=== PATIENT | female | born 1970 | race Caucasian/White ===

== ENCOUNTER → 2018-03-26 | Outpatient (CLI) | payer OTHER ==
[~2018-03-26] MED LIST: ? ANTIDEPRESSANT; ACYC800 PO; Bactrim Ds Tab1 EACH PO; CEPH500 PO; CITA20 PO; CRUTCH2 USE; CYCL10 PO; DULO30 PO; DULO60 PO; FLUO20; HIBICLENS120 ML EXT; HYDACE5 PO; IBUP600 PO; INSLIS75I SC; Miralax17 GM PO; NAPR500 PO; NAPR550 PO; OXYACE5T PO; PENVK250 PO; PRED20 PO; PROM25 PO; Percocet 5-3251 EACH PO; RANI150 PO; RXHYDACE PO; RXOXYACE PO; SULTRIDS PO; TRAM50 PO; VALA500 PO; [UNRECOGNIZED DRUG - REMARK]
[2018-03-26 18:00] LABS: BASOPHILS ABSOLUTE AUTO 0.02 K/mm3 (0.00-0.23); BASOPHILS PERCENT AUTO 0 % (0-2); EOSINOPHILS ABSOLUTE AUTO 0.04 K/mm3 (0.00-0.68); EOSINOPHILS PERCENT AUTO 1 % (0-6); Hematocrit 36.1 % (33.0-51.0); Hemoglobin 12.2 g/dL (11.5-16.0); IMMATURE GRAN ABSOLUTE AUTO 0.01 K/mm3 (0.00-0.10); IMMATURE GRAN PERCENT AUTO 0 % (0-1); LYMPHOCYTES ABSOLUTE AUTO 2.01 K/mm3 (0.84-5.20); LYMPHOCYTES PERCENT AUTO 32 % (21-46); MONOCYTES ABSOLUTE AUTO 0.68 K/mm3 (0.16-1.47); MONOCYTES PERCENT AUTO 11 % (4-13); Mean Corpuscular HGB 30.8 pg (26.0-34.0); Mean Corpuscular HGB Conc 33.8 g/dL (31.5-36.5); Mean Corpuscular Volume 91 fL (80-100); Mean Platelet Volume 9.5 fL (9.1-12.4); NEUTROPHILS ABSOLUTE AUTO 3.56 K/mm3 (1.96-9.15); NEUTROPHILS PERCENT AUTO 56 % (41-73); Platelet Count 239 K/mm3 (150-400); RDW Coefficient Variation 13.2 % (11.7-14.2); RDW Standard Deviation 44.1 fL (35.1-46.3); Red Blood Cell Count 3.96 M/mm3 (3.80-5.20); White Blood Cell Count 6.32 K/mm3 (4.00-11.30)
[2018-03-26 18:13] LABS: Alanine Aminotransfer (ALT/SGP 15 U/L (12-78); Albumin, Blood 3.6 g/dL (3.4-5.0); Albumin/Globulin Ratio 1.1 (0.8-1.8); Alk Phos 73 U/L (40-126); Anion Gap 7 mmol/L (6-16); Aspartate Aminotrans (AST/SGOT 16 U/L (12-37); Bilirubin, Total 0.4 mg/dL (0.1-1.0); Blood Urea Nitrogen 16 mg/dL (8-24); Bun/Creatinine Ratio 15.5 (12.0-20.0); CO2, Blood 26 mmol/L (21-32); Calcium, Blood 8.9 mg/dL (8.5-10.1); Chloride, Blood 105 mmol/L (98-108); Creatinine, Blood 1.03 mg/dL (0.40-1.00); Globulin, Blood 3.3 g/dL (2.2-4.0); Glomerular Filtration Rate 58 (60-); Glucose, Blood 92 mg/dL (70-99); Potassium, Blood 3.9 mmol/L (3.5-5.5); Sodium, Blood 138 mmol/L (136-145); Total Protein, Blood 6.9 g/dL (6.4-8.2)
[2018-03-26 18:14] LABS: Troponin I <0.017 ng/mL (0.000-0.040)
== END ==
LOC: LAB SHORT 17:54 → LAB EV 17:54
PROVIDERS: Physician Assistant
DX: R07.9 Chest pain, unspecified (principal)
CPT/HCPCS: 80053; 83690; 84484; 85025

== ENCOUNTER 2018-07-25 19:45 | Emergency (ER) | payer OTHER ==
[~2018-07-25] VITALS: Ht 160 cm; Wt 72.6 kg
[2018-07-25 20:17] LABS: Source, Urine Clean Catch
[2018-07-25 20:25] LABS: BASOPHILS ABSOLUTE AUTO 0.02 K/mm3 (0.00-0.23); BASOPHILS PERCENT AUTO 0 % (0-2); EOSINOPHILS ABSOLUTE AUTO 0.02 K/mm3 (0.00-0.68); EOSINOPHILS PERCENT AUTO 0 % (0-6); Hematocrit 39.2 % (33.0-51.0); Hemoglobin 12.9 g/dL (11.5-16.0); IMMATURE GRAN ABSOLUTE AUTO 0.01 K/mm3 (0.00-0.10); IMMATURE GRAN PERCENT AUTO 0 % (0-1); LYMPHOCYTES ABSOLUTE AUTO 2.33 K/mm3 (0.84-5.20); LYMPHOCYTES PERCENT AUTO 33 % (21-46); MONOCYTES PERCENT AUTO 9 % (4-13); Mean Corpuscular HGB 30.5 pg (26.0-34.0); Mean Corpuscular HGB Conc 32.9 g/dL (31.5-36.5); Mean Corpuscular Volume 93 fL (80-100); Mean Platelet Volume 9.8 fL (9.1-12.4); NEUTROPHILS ABSOLUTE AUTO 4.03 K/mm3 (1.96-9.15); NEUTROPHILS PERCENT AUTO 58 % (41-73); Platelet Count 261 K/mm3 (150-400); RDW Coefficient Variation 13.2 % (11.7-14.2); Red Blood Cell Count 4.23 M/mm3 (3.80-5.20); White Blood Cell Count 7.01 K/mm3 (4.00-11.30)
[2018-07-25 20:28] LABS: Appearance, Urine Cloudy (Clear); Bilirubin, Urine Neg (Neg); Blood, Urine 1+ (Neg); Color, Urine Yellow (P-Yellow); Glucose Qualitative, Urine Neg (Neg); Ketones, Urine Neg (Neg); Leukocyte Esterase, Urine 1+ (Neg); Nitrite, Urine Pos (Neg); Protein, Urine Neg (Neg); Urobilinogen, Urine NORM (Normal)
[2018-07-25 20:46] LABS: Alanine Aminotransfer (ALT/SGP 15 U/L (12-78); Albumin, Blood 3.8 g/dL (3.4-5.0); Alk Phos 79 U/L (50-136); Anion Gap 8 mmol/L (6-16); Aspartate Aminotrans (AST/SGOT 10 U/L (12-37); Bilirubin, Total 0.5 mg/dL (0.1-1.0); Blood Urea Nitrogen 12 mg/dL (8-24); Bun/Creatinine Ratio 14.3 (12.0-20.0); CO2, Blood 25 mmol/L (21-32); Calcium, Blood 8.7 mg/dL (8.5-10.1); Chloride, Blood 105 mmol/L (98-108); Creatinine, Blood 0.84 mg/dL (0.40-1.00); Globulin, Blood 3.9 g/dL (2.2-4.0); Glomerular Filtration Rate >60 (60-); Glucose, Blood 75 mg/dL (70-99); Potassium, Blood 3.4 mmol/L (3.5-5.5); Sodium, Blood 138 mmol/L (136-145); Total Protein, Blood 7.7 g/dL (6.4-8.2)
[2018-07-25 20:48] LABS: Bacteria Many /hpf; Squamous Epithelial Cells Many /hpf (Few)
[2018-07-25] MEDS ORDERED: Pyridium100 MG PO (21:50)
[2018-07-25] MEDS ORDERED: CEPH500 PO (21:50)
== END 2018-07-25 22:40 | disposition home or self-care (01) ==
LOC: ER 19:45
PROVIDERS: Emergency Medicine
DX: N30.90 Cystitis, unspecified without hematuria (principal); Z88.1 Allergy status to other antibiotic agents; Z88.5 Allergy status to narcotic agent; Z79.899 Other long term (current) drug therapy; F32.9 Major depressive disorder, single episode, unspecified
CPT/HCPCS: 36415; 80053; 81001; 83690; 85025; 87077; 87086; 87186; 96365; 96375; 99284-25; J0696; J1885

== ENCOUNTER 2019-06-07 14:53 | Emergency (ER) | payer OTHER ==
[~2019-06-07] VITALS: Ht 152.4 cm; Wt 67.1 kg
[~2019-06-07 14:53] MED LIST changes: +Pyridium100 MG PO
[2019-06-07] MEDS ORDERED: ACYC200 PO (15:18)
[2019-06-07 15:23] LABS: BASOPHILS ABSOLUTE AUTO 0.03 K/mm3 (0.00-0.23); BASOPHILS PERCENT AUTO 1 % (0-2); EOSINOPHILS ABSOLUTE AUTO 0.02 K/mm3 (0.00-0.68); EOSINOPHILS PERCENT AUTO 0 % (0-6); Hematocrit 40.9 % (33.0-51.0); Hemoglobin 13.3 g/dL (11.5-16.0); IMMATURE GRAN ABSOLUTE AUTO 0.02 K/mm3 (0.00-0.10); IMMATURE GRAN PERCENT AUTO 0 % (0-1); LYMPHOCYTES ABSOLUTE AUTO 1.71 K/mm3 (0.84-5.20); LYMPHOCYTES PERCENT AUTO 27 % (21-46); MONOCYTES ABSOLUTE AUTO 0.44 K/mm3 (0.16-1.47); MONOCYTES PERCENT AUTO 7 % (4-13); Mean Corpuscular HGB 31.5 pg (26.0-34.0); Mean Corpuscular HGB Conc 32.5 g/dL (31.5-36.5); Mean Corpuscular Volume 97 fL (80-100); Mean Platelet Volume 9.3 fL (9.1-12.4); NEUTROPHILS ABSOLUTE AUTO 4.06 K/mm3 (1.96-9.15); NEUTROPHILS PERCENT AUTO 65 % (41-73); Platelet Count 242 K/mm3 (150-400); RDW Coefficient Variation 12.5 % (11.7-14.2); RDW Standard Deviation 44.7 fL (35.1-46.3); Red Blood Cell Count 4.22 M/mm3 (3.80-5.20); White Blood Cell Count 6.28 K/mm3 (4.00-11.30)
[2019-06-07 15:31] LABS: Source, Urine Clean Catch
[2019-06-07 15:37] LABS: Bilirubin, Urine Neg (Neg); Blood, Urine Neg (Neg); Glucose Qualitative, Urine Neg (Neg); Ketones, Urine Neg (Neg); Leukocyte Esterase, Urine 1+ (Neg); Nitrite, Urine Neg (Neg); Protein, Urine Neg (Neg); Specific Gravity, Urine 1.015 (1.003-1.022); Urobilinogen, Urine NORM (Normal)
[2019-06-07 15:46] LABS: Appearance, Urine Clear (Clear); Color, Urine Yellow (P-Yellow)
[2019-06-07 15:48] LABS: Bacteria Few /hpf; Mucus Light (0-Heavy); Red Blood Cells, Urine Not Seen /hpf (0-2); Squamous Epithelial Cells Mod /hpf (Few); White Blood Cells, Urine 0-2 /hpf (0-5)
[2019-06-07 15:56] LABS: Alanine Aminotransfer (ALT/SGP 15 U/L (12-78); Albumin, Blood 3.7 g/dL (3.4-5.0); Albumin/Globulin Ratio 1.1 (0.8-1.8); Alk Phos 65 U/L (50-136); Anion Gap 7 mmol/L (6-16); Aspartate Aminotrans (AST/SGOT 19 U/L (12-37); Bilirubin, Total 0.2 mg/dL (0.1-1.0); Blood Urea Nitrogen 14 mg/dL (8-24); Bun/Creatinine Ratio 18.2 (12.0-20.0); CO2, Blood 24 mmol/L (21-32); Calcium, Blood 8.4 mg/dL (8.5-10.1); Chloride, Blood 108 mmol/L (98-108); Creatinine, Blood 0.77 mg/dL (0.40-1.00); Globulin, Blood 3.4 g/dL (2.2-4.0); Glomerular Filtration Rate >60 (60-); Glucose, Blood 76 mg/dL (70-99); Potassium, Blood 3.9 mmol/L (3.5-5.5); Sodium, Blood 139 mmol/L (136-145); Total Protein, Blood 7.1 g/dL (6.4-8.2)
[2019-06-07] MEDS ORDERED: ONDA4ODT MM (16:21)
[2019-06-07] MEDS ORDERED: Norco 5-325 Ta1 EACH PO (16:21)
[2019-06-07] MEDS ORDERED: Percocet 5-3251 EACH PO (17:25)
== END 2019-06-07 16:51 | disposition home or self-care (01) ==
LOC: ER 14:53
PROVIDERS: Physician Assistant
DX: K40.90 Unilateral inguinal hernia, without obstruction or gangrene, not specified as recurrent (principal); Z88.1 Allergy status to other antibiotic agents; Z88.5 Allergy status to narcotic agent; Z79.899 Other long term (current) drug therapy
CPT/HCPCS: 36415; 80053; 81001; 81025; 85025; 87086; 96374; 96375; 99284-25; J2405; J3010

== ENCOUNTER 2020-10-12 11:04 | Emergency (ER) | payer OTHER ==
[~2020-10-12] VITALS: Ht 160 cm; Wt 72.6 kg
[~2020-10-12 11:04] MED LIST changes: +ACYC200 PO; +Norco 5-325 Ta1 EACH PO; +ONDA4ODT MM
== END 2020-10-12 13:58 | disposition home or self-care (01) ==
LOC: ER 11:04
DX: M21.611 Bunion of right foot (principal)
CPT/HCPCS: 73610; 73630; 96372; 99283-25; J1885

== ENCOUNTER 2021-05-05 09:24 | Day surgery (SDC) | payer OTHER ==
[~2021-05-05] VITALS: Ht 160 cm; Wt 75.5 kg
[~2021-05-05 09:24] MED LIST changes: +IBU600 M1 PO; +MOBIC15 MG PO; +TRAZ50 PO
[2021-05-05] MEDS ORDERED: Cymbalta20 MG PO (09:51)
== END 2021-05-05 12:48 | disposition home or self-care (01) ==
LOC: ORSCSDS 09:24
PROVIDERS: Podiatrist Foot & Ankle Surgery
PROC: 0SGM04Z Fusion of Right Metatarsal-Phalangeal Joint with Internal Fixation Device, Open Approach (ICD-10-PCS; principal; 2021-05-05 10:25)
DX: M20.21 Hallux rigidus, right foot (principal); Z87.891 Personal history of nicotine dependence; Z79.899 Other long term (current) drug therapy
CPT/HCPCS: A9270; C1713; C1769; J0171; J0690; J1100; J1885; J2405; J2704; J3010; J7120

== ENCOUNTER → 2022-06-06 | Outpatient (CLI) | payer OTHER ==
[~2022-06-06] MED LIST changes: +Cymbalta20 MG PO
== END | disposition home or self-care (01) ==
LOC: LAB SHORT 14:06
DX: M25.512 Pain in left shoulder (principal)
CPT/HCPCS: 85651

== ENCOUNTER 2023-05-18 18:14 | Emergency (ER) | payer OTHER ==
[~2023-05-18] VITALS: Ht 160 cm; Wt 77.6 kg
[2023-05-18 19:15] LABS: BASOPHILS ABSOLUTE AUTO 0.05 K/mm3 (0.00-0.23); BASOPHILS PERCENT AUTO 1 % (0-2); EOSINOPHILS ABSOLUTE AUTO 0.09 K/mm3 (0.00-0.68); EOSINOPHILS PERCENT AUTO 1 % (0-6); Hematocrit 37.3 % (33.0-51.0); Hemoglobin 12.8 g/dL (11.5-16.0); IMMATURE GRAN ABSOLUTE AUTO 0.02 K/mm3 (0.00-0.10); IMMATURE GRAN PERCENT AUTO 0 % (0-1); LYMPHOCYTES ABSOLUTE AUTO 2.68 K/mm3 (0.84-5.20); LYMPHOCYTES PERCENT AUTO 40 % (21-46); MONOCYTES PERCENT AUTO 9 % (4-13); Mean Corpuscular HGB 30.9 pg (26.0-34.0); Mean Corpuscular HGB Conc 34.3 g/dL (31.5-36.5); Mean Corpuscular Volume 90 fL (80-100); Mean Platelet Volume 9.3 fL (9.1-12.4); NEUTROPHILS ABSOLUTE AUTO 3.27 K/mm3 (1.96-9.15); NEUTROPHILS PERCENT AUTO 49 % (41-73); Platelet Count 304 K/mm3 (150-400); RDW Coefficient Variation 13.3 % (11.7-14.2); RDW Standard Deviation 44.2 fL (35.1-46.3); Red Blood Cell Count 4.14 M/mm3 (3.80-5.20); White Blood Cell Count 6.71 K/mm3 (4.00-11.30)
[2023-05-18 19:29] VITALS: BP 176/99
[2023-05-18 19:52] LABS: Albumin, Blood 3.4 g/dL (3.4-5.0); Albumin/Globulin Ratio 0.9 (0.8-1.8); Bilirubin, Total 0.2 mg/dL (0.1-1.0); Bun/Creatinine Ratio 25.5 (12.0-20.0); Calcium, Blood 8.9 mg/dL (8.5-10.1); Creatinine, Blood 0.9 mg/dL (0.40-1.00); Globulin, Blood 3.7 g/dL (2.2-4.0); Potassium, Blood 4.1 mmol/L (3.5-5.5); Total Protein, Blood 7.1 g/dL (6.4-8.2)
[2023-05-18] MEDS ORDERED: LIDO700A20 TOP (22:53)
== END 2023-05-18 23:20 | disposition home or self-care (01) ==
LOC: ER 18:14
PROVIDERS: Student in an Organized Health Care Education/Training Program
DX: R07.81 Pleurodynia (principal); Z88.1 Allergy status to other antibiotic agents; Z88.5 Allergy status to narcotic agent; Z79.899 Other long term (current) drug therapy
CPT/HCPCS: 71046; 80053; 83690; 84484; 85025; 85379; 93005; 93010; 96374; 99284-25; A9270; J1885

== ENCOUNTER 2023-11-25 10:14 | Day surgery (SDC) | payer OTHER ==
[~2023-11-25] VITALS: Ht 160 cm; Wt 82.9 kg
[~2023-11-25 10:14] MED LIST changes: +LIDO700A20 TOP; +Lactated Ringer's 1,000 ML IV ONE
[2023-11-25] MEDS ORDERED: CeFAZolin Sodium 2,000 MG VIAL ONE (10:22)
[2023-11-25] MEDS ORDERED: NS 50 ML IV ONE (10:22)
[2023-11-25] MEDS ORDERED: Lactated Ringer's 1,000 ML IV ONE (11:02)
[2023-11-25 11:10] LABS: BASOPHILS ABSOLUTE AUTO 0.04 K/mm3 (0.00-0.23); BASOPHILS PERCENT AUTO 1 % (0-2); EOSINOPHILS ABSOLUTE AUTO 0.05 K/mm3 (0.00-0.68); EOSINOPHILS PERCENT AUTO 1 % (0-6); Hematocrit 41.9 % (33.0-51.0); Hemoglobin 13.7 g/dL (11.5-16.0); IMMATURE GRAN ABSOLUTE AUTO 0.02 K/mm3 (0.00-0.10); IMMATURE GRAN PERCENT AUTO 0 % (0-1); LYMPHOCYTES ABSOLUTE AUTO 1.93 K/mm3 (0.84-5.20); LYMPHOCYTES PERCENT AUTO 35 % (21-46); MONOCYTES ABSOLUTE AUTO 0.39 K/mm3 (0.16-1.47); MONOCYTES PERCENT AUTO 7 % (4-13); Mean Corpuscular HGB Conc 32.7 g/dL (31.5-36.5); Mean Corpuscular Volume 92 fL (80-100); Mean Platelet Volume 9.8 fL (9.1-12.4); NEUTROPHILS ABSOLUTE AUTO 3.02 K/mm3 (1.96-9.15); NEUTROPHILS PERCENT AUTO 55 % (41-73); Platelet Count 326 K/mm3 (150-400); RDW Coefficient Variation 14.2 % (11.7-14.2); Red Blood Cell Count 4.56 M/mm3 (3.80-5.20); White Blood Cell Count 5.45 K/mm3 (4.00-11.30)
[2023-11-25] MEDS ORDERED: FentaNYL Citrate 50 MCG/ML 2 ML Injection ONE (11:29)
[2023-11-25] MEDS ORDERED: Midazolam HCL 1 MG/ML 5MLVIAL ONE (11:29)
[2023-11-25] MEDS ORDERED: Lidocaine HCl 2% 10 ML SDA ONE (12:01)
--- NOTE | 2023-11-25 12:19 | NUR ---
11/25/23 1219 Rupal Atkinson BLOCK COMPLETE IN OR BY DR WARD. TIME OUT DONE. PT TOLERATED WELL. VSS.
[2023-11-25] MEDS ORDERED: propofoL 20 ML IV ONE (12:23)
[2023-11-25] MEDS ORDERED: Ropivacaine 0.5% HCl/Pf 5 MG/ML 20ML VIAL INJ ONE (12:26)
[2023-11-25] MEDS ORDERED: EPINEPhrine HCl 1 MG/ML 1ML Amp XX ONE (12:26)
[2023-11-25] MEDS ORDERED: Ketorolac Tromethamine 30mg Vial ONE (12:43)
[2023-11-25 12:56] VITALS: BP 115/90
== END 2023-11-25 13:35 | disposition home or self-care (01) ==
LOC: ORSCSDS 10:14
PROVIDERS: Orthopaedic Surgery
PROC: 0LN70ZZ Release Right Hand Tendon, Open Approach (ICD-10-PCS; principal; 2023-11-25 11:30)
PROC: 0LB70ZZ Excision of Right Hand Tendon, Open Approach (ICD-10-PCS; principal; 2023-11-25 11:30)
DX: M65.331 Trigger finger, right middle finger (principal); M67.441 Ganglion, right hand; Z87.891 Personal history of nicotine dependence; K21.9 Gastro-esophageal reflux disease without esophagitis; Z79.899 Other long term (current) drug therapy; I73.00 Raynaud's syndrome without gangrene; F41.9 Anxiety disorder, unspecified; F32.A Depression, unspecified
CPT/HCPCS: 85025; J0171; J0690; J1885; J2001; J2250; J2704; J2795; J3010; J7120

== ENCOUNTER → 2024-04-18 | Outpatient (CLI) | payer OTHER ==
[~2024-04-18] MED LIST changes: -Lactated Ringer's 1,000 ML IV ONE
[2024-04-20 16:11] LABS: RHEUMATOID FACTOR <10 IU/mL (0-14)
[2024-04-20 18:43] LABS: ANTI-NUCLEAR AB ANA,IGG ELISA None Detected (None Detected)
== END | disposition home or self-care (01) ==
LOC: LAB SHORT 10:00 → LAB 10:00
PROVIDERS: Physician Assistant Medical
DX: M25.542 Pain in joints of left hand (principal)
CPT/HCPCS: 86038; 86431

== ENCOUNTER 2024-05-24 06:36 | Emergency (ER) | payer OTHER ==
[~2024-05-24] VITALS: Ht 165.1 cm; Wt 83.9 kg
[2024-05-24] MEDS ORDERED: Acetaminophen 500 MG Tab PO ONE (07:15)
[2024-05-24] MEDS ORDERED: Methocarbamol 500 MG Tab PO ONE (07:15)
[2024-05-24] MEDS ORDERED: Ketorolac Tromethamine 30mg Vial IM ONE (07:15)
[2024-05-24 10:30] VITALS: BP 148/100
[2024-05-24] MEDS ORDERED: Morphine Sulfat15 MG PO ×2 (10:36→10:45)
[2024-05-24] MEDS ORDERED: FAMO20 PO ×2 (10:36→10:45)
[2024-05-24] MEDS ORDERED: Robaxin750 MG PO ×2 (10:36→10:45)
== END 2024-05-24 10:50 | disposition home or self-care (01) ==
LOC: ER 06:36
DX: S20.211A Contusion of right front wall of thorax, initial encounter (principal); W18.09XA Striking against other object with subsequent fall, initial encounter; Z88.1 Allergy status to other antibiotic agents; Z88.5 Allergy status to narcotic agent; Z79.899 Other long term (current) drug therapy
CPT/HCPCS: 71101; 96372; 99283-25; A9270; J1885

== ENCOUNTER 2024-08-13 09:51 | Day surgery (SDC) | payer OTHER ==
[~2024-08-13] VITALS: Ht 160 cm; Wt 85.1 kg
[2024-08-13] VITALS (14 sets, daily range): BP systolic 114–165; BP diastolic 55–120
[~2024-08-13 09:51] MED LIST changes: +CeFAZolin Sodium 2,000 MG VIAL ONE; +CeFAZolin Sodium 2,000 MG in NS 100 ML IV SCH; +FAMO20 PO; +Lactated Ringer's 1,000 ML IV SCH; +Morphine Sulfat15 MG PO; +Robaxin750 MG PO
[2024-08-13] MEDS ORDERED: propofoL 20 ML IV ONE (10:20)
[2024-08-13] MEDS ORDERED: FentaNYL Citrate 50 MCG/ML 2 ML Injection ONE ×2 (10:21→13:59)
--- NOTE | 2024-08-13 10:57 | NUR ---
AMBULATE TO [facility] PRE OP TEACHING DONE
[2024-08-13] MEDS ORDERED: Bupivacaine 0.5% HCl 5 MG/ML 30MLVIAL ONE (11:01)
[2024-08-13] MEDS ORDERED: Rocuronium Bromide 10 MG/ML 5ML Injection IV ONE (11:18)
[2024-08-13] MEDS ORDERED: Ondansetron HCl 2 MG / ML 2ML Vial ONE (11:29)
[2024-08-13] MEDS ORDERED: Dexamethasone Sod Phos 10 MG/ML 1ML VIAL ONE (11:29)
[2024-08-13] MEDS ORDERED: Cyclobenzaprine HCl 10 MG Tab PO PRN (11:30)
[2024-08-13] MEDS ORDERED: Ketamine HCl 100 MG / ML 5ML Vial ONE (11:55)
[2024-08-13] MEDS ORDERED: Glycopyrrolate 0.2 MG/ML 5ML VIAL ONE (11:58)
[2024-08-13] MEDS ORDERED: HYDROmorphone HCl/Pf 1MG SYR ONE ×2 (12:04→13:59)
[2024-08-13] MEDS ORDERED: OxyCODONE 5 mg/Acetamin 325 mg TABLET PO PRN ×2 (14:00→18:55)
[2024-08-13] MEDS ORDERED: Promethazine HCl 25 MG Tab PO PRN ×2 (14:00→18:55)
[2024-08-13] MEDS ORDERED: HYDROmorphone HCl/Pf 1MG SYR IV PRN (14:00)
[2024-08-13] MEDS ORDERED: Metoclopramide HCl 5MG / ML 2ML Vial ONE (14:04)
[2024-08-13] MEDS ORDERED: Simethicone 80 MG Chew PO PRN (14:05)
[2024-08-13] MEDS ORDERED: Promethazine HCl 12.5 MG Supp PR PRN (14:05)
[2024-08-13] MEDS ORDERED: FLU VACC TS2024-25(6MOS UP)/PF 45 MCG/0.5 ML SYRINGE IM PRN (14:05)
[2024-08-13] MEDS ORDERED: Ondansetron 4 MG TAB PO PRN (14:05)
[2024-08-13] MEDS ORDERED: Naloxone HCl 0.4MG / ML 1ML Vial IV PRN (14:05)
[2024-08-13] MEDS ORDERED: Lactated Ringer's 1,000 ML IV SCH (14:05)
[2024-08-13] MEDS ORDERED: Ondansetron HCl 2 MG / ML 2ML Vial IV PRN (14:10)
[2024-08-13] MEDS ORDERED: Ketorolac Tromethamine 30mg Vial IV PRN (14:25)
--- NOTE | 2024-08-13 17:58 | NUR ---
SUMMARY PT MEDICATED FOR NAUSEA PER ORDERS SHORTLY AFTER ARRIVING TO UNIT FROM PACU. MEDICATED PER ORDERS FOR PAIN. PROVIDED CRACKERS TO TAKE WITH PERCOCET. PT SIPPING WATER. PT SHIVERING BUT STATES NOT COLD. CALL LIGHT IN REACH.
[2024-08-13] MEDS ORDERED: CeFAZolin Sodium 2,000 MG in NS 100 ML IV SCH (20:00)
[2024-08-13] MEDS ORDERED: DULoxetine HCL 20 MG Cap DR PO SCH (21:00)
[2024-08-14 03:22] VITALS: BP 141/113
[2024-08-14 03:40] VITALS: BP 139/107
[2024-08-14 04:21] VITALS: BP 134/84
--- NOTE | 2024-08-14 04:28 | NUR ---
SHIFT SUMMARY POD 1 S/P ROBOTIC HYSTER. ABD LAP SITES X4 OPEN TO AIR, CLOSED WITH TISSUE ADHESIVE- NO DRAINAGE NOTED. HYPERTENSIVE EPISODES DURING SHIFT. PT STATES FREQUENT OCCURANCE AT PROVIDER'S OFFICE AND HAS NOT BEEN RECOMMENDED FOR MEDICAL TREATMENT RELATED TO THIS. ENCOURAGED FOLLOW-WITH PCP ON DISCHARGE R/T HTN. BP IMPROVING AFTER NAUSEA CONTROL, SEE VITALS. WILL CONTINUE TO MANAGE NAUSEA PER EMAR. LU PO FLUIDS AND CRACKERS. REPORTS POOR APPETITE. IS VOIDING, URINE YELLOW IN COLOR. SBA TO BATHROOM. DECLINES AMBULATION IN HALLWAY, WILL CONTINUE TO ENCOURAGE. PAIN MANAGED PER EMAR. ABX INFUSED PER ORDERS, IV SL. SCD'S TO BLE IN PLACE. CONT BIOX ON PER PROTOCOL, SPO2 CARL 93% ON RA. PT CURRENTLY RESTING IN BED WITH CALL LIGHT IN REACH AND IS ABLE TO MAKE NEEDS KNOWN. PLAN TO GIVE REPORT TO ONCOMING RN.
[2024-08-14 05:25] LABS: BASOPHILS ABSOLUTE AUTO 0.01 K/mm3 (0.00-0.23); BASOPHILS PERCENT AUTO 0 % (0-2); EOSINOPHILS PERCENT AUTO 0 % (0-6); Hematocrit 40.2 % (33.0-51.0); Hemoglobin 13.4 g/dL (11.5-16.0); IMMATURE GRAN ABSOLUTE AUTO 0.02 K/mm3 (0.00-0.10); IMMATURE GRAN PERCENT AUTO 0 % (0-1); LYMPHOCYTES ABSOLUTE AUTO 1.59 K/mm3 (0.84-5.20); LYMPHOCYTES PERCENT AUTO 16 % (21-46); MONOCYTES ABSOLUTE AUTO 0.86 K/mm3 (0.16-1.47); MONOCYTES PERCENT AUTO 9 % (4-13); Mean Corpuscular HGB 29.3 pg (26.0-34.0); Mean Corpuscular HGB Conc 33.3 g/dL (31.5-36.5); Mean Corpuscular Volume 88 fL (80-100); Mean Platelet Volume 9.1 fL (9.1-12.4); NEUTROPHILS ABSOLUTE AUTO 7.36 K/mm3 (1.96-9.15); NEUTROPHILS PERCENT AUTO 75 % (41-73); Platelet Count 395 K/mm3 (150-400); RDW Coefficient Variation 13.1 % (11.7-14.2); RDW Standard Deviation 41.9 fL (35.1-46.3); Red Blood Cell Count 4.57 M/mm3 (3.80-5.20); White Blood Cell Count 9.84 K/mm3 (4.00-11.30)
[2024-08-14] MEDS ORDERED: Magnesium Hydroxide Conc 10 ML UDC PO PRN (08:50)
[2024-08-14] MEDS ORDERED: Estradiol 1 MG Tab PO SCH (09:00)
[2024-08-14] MEDS ORDERED: Docusate Sodium 100 MG Cap PO SCH (09:00)
[2024-08-14] MEDS ORDERED: Cyclobenzaprine HCl 10 MG Tab PO PRN (09:43)
--- NOTE | 2024-08-14 09:46 | NUR ---
WONDERJORDAN IN TO SEE PT.
[2024-08-14] MEDS ORDERED: Percocet 5-3251 EACH PO (12:25)
[2024-08-14] MEDS ORDERED: ESTR2 PO (12:25)
[2024-08-14] MEDS ORDERED: SIME80CH PO (12:26)
[2024-08-14] MEDS ORDERED: PROM25 PO (12:26)
[2024-08-14 14:38] VITALS: BP 115/87
[2024-08-14 17:00] VITALS: BP 118/92
--- NOTE | 2024-08-14 17:09 | NUR ---
discharging PT'S PAIN CONTROLLED, TOLERATING PO, VOIDING AND GETTING UP INDEPENDENTLY. VSS. REVIEWED DC INSTRUCTIONS W/PT; VERBALIZED UNDERSTANDING. DC'D IV, CATHETER INTACT. PT GETTING DRESSED, STATED RIDE WOULD BE HERE IN APPROXIMATELY 30 MIN.
--- NOTE | 2024-08-14 18:32 | NUR ---
DISCHARGED PT LEFT UNIT IN WC AT 1800 W/POSSESSIONS AND DC PAPERWORK IN HAND TO MEET RIDE OUTSIDE.
== END 2024-08-14 17:58 | disposition home or self-care (01) ==
LOC: ORSCMMR 09:51 → ORD 11:45 → SURS 14:49 → ORSCMMR 08-14 17:58
PROVIDERS: Obstetrics & Gynecology
PROC: 0UT7FZZ Resection of Bilateral Fallopian Tubes, Via Natural or Artificial Opening With Percutaneous Endoscopic Assistance (ICD-10-PCS; principal; 2024-08-13 11:45)
PROC: 0UT2FZZ Resection of Bilateral Ovaries, Via Natural or Artificial Opening With Percutaneous Endoscopic Assistance (ICD-10-PCS; principal; 2024-08-13 11:45)
PROC: 0UT9FZZ Resection of Uterus, Via Natural or Artificial Opening With Percutaneous Endoscopic Assistance (ICD-10-PCS; principal; 2024-08-13 11:45)
DX: N92.1 Excessive and frequent menstruation with irregular cycle (principal); N94.6 Dysmenorrhea, unspecified; R10.2 Pelvic and perineal pain; N83.292 Other ovarian cyst, left side; N83.291 Other ovarian cyst, right side; N83.8 Other noninflammatory disorders of ovary, fallopian tube and broad ligament; N80.03 Adenomyosis of the uterus; N80.329 Endometriosis of the posterior cul-de-sac, unspecified depth; Z79.899 Other long term (current) drug therapy
CPT/HCPCS: 36415; 85025; 86850; 86900; 86901; 88305; 88307; 94762; A9270; J0690; J1100; J1171; J1885; J2405; J2704; J2765; J3010; J7120